=== PATIENT | female | born 1960 | race Two or more races ===

== ENCOUNTER 2024-08-06 10:35 | Day surgery (SDC) | payer MEDICAID, SELFPAY ==
--- NOTE | 2024-08-05 06:29 | EKG_ITS ---
[facility] Test Date: 2024-08-05 Pat Name: ANAT MERCADO Department: Room: - Gender: Female [employer]: RT STUDENT : 1960 Requested By: Javed Gomez Order Number: [id number] Reading MD: Javed Gomez Measurements Intervals [place] Rate: 53 P: 39 [place]: 148 QRS: 43 QRSD: 105 T: 51 QT: 429 QTc: 406 Interpretive Statements SINUS BRADYCARDIA POSSIBLE LATERAL MYOCARDIAL INFARCTION , OF INDETERMINATE AGE No previous ECG available for comparison /[id number]
[2024-08-05 08:26] VITALS: BMI 25.5
[2024-08-05 09:14] LABS: Basophils % (Auto) 0 % (0-2.5); Eosinophils # (Auto) 0.1 Thou/mm3 (0.0-0.5); Eosinophils % (Auto) 1 % (0-10); Hematocrit 40.6 % (36.0-46.0); Hemoglobin 13.1 g/dL (12.0-16.0); Immature Granulocytes % (Auto) 0 % (0-0); Immature Granulocytes Auto 0.01 Thou/mm3 (0.00-0.00); Lymphocytes % (Auto) 37 % (10-50); Mean Corpuscular HGB Conc 32.3 g/dl (31.0-37.0); Mean Corpuscular Hemoglobin 27.8 pg (25.0-35.0); Mean Corpuscular Volume 86 fL (80-100); Monocytes # (Auto) 0.4 Thou/mm3 (0.0-0.8); Monocytes % (Auto) 8 % (0-12); Neutrophils # (Auto) 2.9 Thou/mm3 (1.8-7.7); Neutrophils % (Auto) 54 % (37-80); Nucleated Red Blood Cell % 0 /100 WBC (0); Platelet Count 180 Thou/mm3 (140-440); RDW Standard Deviation 44.8 fL (36.4-46.3); Red Blood Count 4.72 Miln/mm3 (4.00-5.20); White Blood Count 5.4 Thou/mm3 (3.6-11.0)
[2024-08-05 09:23] LABS: Partial Thromboplastin Time 28.2 Seconds (22.0-36.0); Prothrombin Time 10.8 Seconds (9.0-12.2)
[2024-08-05 09:27] LABS: Alanine Aminotransferase 24 U/L (10-49); Albumin, Serum 4.7 gm/dL (3.4-4.8); Albumin/Globulin Ratio 1.8 (1.2-2.2); Alkaline Phosphatase 81 U/L (46-116); Anion Gap 3 (7-16); Aspartate Amino Transferase 25 U/L (0-34); BUN/Creatinine Ratio 23 Ratio (12-20); Bilirubin,Total 0.6 mg/dL (0.3-1.2); Blood Urea Nitrogen 16 mg/dL (9-23); Calcium 9.7 mg/dL (8.3-10.6); Calcium (Corrected) 9.7 mg/dL (8.5-10.1); Carbon Dioxide 28.7 mMol/L (20.0-31.0); Chloride 108 mMol/L (98-107); Creatinine (Component) 0.7 mg/dL (0.6-1.3); Estimated Creatinine Clearance 76.7 mL/min (>60); Globulin 2.6 gm/dL (2.3-3.5); Glucose 92 mg/dL (74-106); Osmolality,Calculated 280 (275-295); Potassium 3.8 mMol/L (3.4-5.1); Sodium 140 mMol/L (136-145); Total Protein 7.3 gm/dL (5.7-8.2); eGFR > 60 See Note
[2024-08-06] VITALS (8 sets, daily range): BP systolic 100–124; BP diastolic 40–57; PULSE 55–75; RESP 12–20; TEMP 36.1–36.3; O2SAT 96–100; BMI 25.5
[2024-08-06] MEDS: RINGERS LACTATED 1000 ML 1,000 ML 20 ML IV (11:27)
--- NOTE | 2024-08-06 14:30 | ESOP_ITS ---
Date of Procedure 08/06/24 Pre Op Diagnosis Symptomatic varicose veins left lower extremity Post Op Diagnosis Same as preop diagnosis Procedure Radiofrequency ablation of the greater saphenous vein left lower extremity with left leg varicose vein excisions Findings The left greater saphenous vein was successfully ablated with no evidence of thrombus in the saphenofemoral junction or common femoral vein All marked varicose veins were successfully removed or disrupted Procedure Description With the patient standing in the preop area all varicose veins to removed were carefully marked with a sharpie pen. The patient was brought to the operating room and general anesthesia was induced. Timeout was performed. The vein ablation procedure was performed first by mapping out the course of the greater saphenous vein from just above the knee on the inside of the thigh to the saphenofemoral junction ultrasound was used to access the vein just above the knee with a 21-gauge needle followed by an 035 guidewire then a 7 Maori sheath introducer was placed. The ablation catheter was then brought to the field prepped and placed into the patient with the tip carefully positioned 3 to 5 cm distal to the saphenofemoral junction. Tumescent anesthesia was then instilled in the subcutaneous tissues surrounding the vein over the treatment length. Catheter tip position was once again ensured to be 3 to 5 cm distal to the saphenofemoral junction then under direct ultrasound compression the catheter was activated with 2 cycles proximally and 2 additional cycles down the leg. At this point the saphenofemoral junction was inspected and found to have good flow compressibility and augmentation with no evidence of thrombus in the sapheno femoral junction or the common femoral vein. Attention was then turned to the varicose veins which were removed by making a small skin lisa in each of the marked areas with a #11 blade then bluntly en larging the incision with a mosquito clamp and sequentially excising the veins. This was performed through 51 separate incisions. After hemostasis was obtained and the wounds the leg was cleaned and then Steri-Strips were applied to reapproximate the incisions. Sterile dressings were then applied with the gauze and Kerlix wrap followed by an Ike bandage. The patient woke up from anesthesia was moved to recovery in stable condition Anesthesia other (Laryngeal mask anesthesia) Implants None Pathology / specimen Other (Left leg varicose veins) Estimated Blood Loss 120 Condition Stable Disposition PACU Surgeon Javed Lima MD Surgical Staff Operation Date: 08/06/24 12:30 Case Staff Anesthesiologist: Lit Nazario RN First Assistant: Marga Simmons
--- NOTE | 2024-08-06 14:45 | SUR.PHASEI ---
pt received from OR in recovery bay 2. pt asleep but responds to voice, breathing unlabored on room air. v/s stable. pt dressing to left lower extremity cdi. report received from Nilsa LOOMIS and Dr. Nazario.
--- NOTE | 2024-08-06 16:10 | SUR.PHASEII ---
pt awake and alert, breathing unlabored on room air. v/s stable. pt dressing to left lower extremity cdi. pt able to ambulate to wheelchair with steady gait, dressing inspected after ambulation cdi. d/c instructions given with daughter Babs in room, all questions answered. pt d/c via wheelchair with all belongings.
== END 2024-08-06 16:10 | disposition home or self-care (01) ==
PROVIDERS: Anesthesiology; PCP Family Medicine; Referring Provider Surgery Vascular Surgery; Visit Provider Surgery Vascular Surgery
PROC: (CPT 36475; principal; 2024-08-06 12:15)
DX: I83.813 Varicose veins of bilateral lower extremities with pain (principal); Z01.810 Encounter for preprocedural cardiovascular examination
CPT/HCPCS: 36475; 37766; 36415; 80053; 85025; 85610; 85730; 93005; A4217; C1888; C1894; J0690; J1885; J2250; J2405; J2704; J2765; J3010; J7050; J7120